=== PATIENT | female | born 1995 | race Two or more races ===

== ENCOUNTER 2021-10-09 03:30 | Emergency (ER) | payer SELFPAY ==
[~2021-10-09] VITALS: Ht 152.4 cm; Wt 104.5 kg
[2021-10-09 03:36] VITALS: BP 113/86
== END 2021-10-09 04:49 | disposition home or self-care (01) ==
LOC: ER 03:31
DX: F10.129 Alcohol abuse with intoxication, unspecified (principal); V98.8XXA Other specified transport accidents, initial encounter; Y93.89 Activity, other specified; Y92.89 Other specified places as the place of occurrence of the external cause; Y99.8 Other external cause status; Y90.9 Presence of alcohol in blood, level not specified
CPT/HCPCS: 99283